=== PATIENT | female | born 1970 | race American Indian/Alaskan Native ===

== ENCOUNTER 2017-04-20 14:30 | Outpatient (CLI) | payer OTHER | END 2017-04-20 14:31 | disposition home or self-care (01) | LOC: LABHHL 14:30 | PROVIDERS: ATTEND Surgery | DX: N60.02 Solitary cyst of left breast (principal) | CPT/HCPCS: 88112 ==

== ENCOUNTER 2017-08-06 16:35 | Emergency (ER) | payer OTHER ==
[2017-08-06] MEDS ORDERED: XYLOCAINE 1% MPF 5 mL INFILTRATI ONE (16:51)
[2017-08-06] MEDS ORDERED: XYLOCAINE 1% MPF 5 mL ONE (16:52)
[2017-08-06 17:12] VITALS: BP 154/82
--- NOTE | 2017-08-06 17:14 | Discharge Summary ---
Providers - Providers Primary care physician: [employer] Hospitalization Procedures: Lap band fluid removal: 7cc total removed Hospital course: 47 y.o. F presented to the ER c/o nausea and vomiting w hx of lap band. She had an upper GI series completed today that showed dilated esophagus with minimal fluid draining passed the lap bad. Pt has had n/v for several days. Denies fever or chills or abdominal pain. Pt had most recent adjust of band in January. Orig. lap band 2007. Total fluid removed from band: 7cc. Post fluid removal pt tolerated fluids well without any nausea or vomiting. Pt understands she needs to follow up in the office for plan of care regarding the lap band management. Disposition: DC-01 TO HOME OR SELFCARE Core Measure Documentation - Palliative Care Palliative Care/ Comfort Measures: Not Applicable - Core Measures Any of the following diagnoses?: none Exam - Physical Exam Narrative exam: Abd: soft, port felt LLQ. non tender. no rebound no guarding. Scars healed. Plan Activity: no restrictions Diet: clear liquids (clears today, advance as tolerated tomorrow ) Follow up with: OPAL DONG MD [Primary Care Provider] - 7 Days NICKI COLBY MD [Staff Physician] - 7 Days
[2017-08-08] MEDS ORDERED: ZOFRAN IV PRN (22:11)
[2017-08-08] MEDS ORDERED: MORPHINE IV PRN (22:11)
[2017-08-08] MEDS ORDERED: LACTATED RINGERS 1,000 ML IV SCH (23:00)
== END 2017-08-06 17:21 | disposition home or self-care (01) ==
LOC: ED 16:35 → 3A 08-08 21:16 → UNDOADMIN 08-08 21:16 → 3A 08-08 22:03 → UNDOADMIN 08-08 22:03
DX: R10.32 Left lower quadrant pain (principal); R11.2 Nausea with vomiting, unspecified
CPT/HCPCS: 99282

== ENCOUNTER 2018-01-25 11:00 | Outpatient (CLI) | payer OTHER | END 2018-01-25 11:01 | disposition home or self-care (01) | LOC: SLR 11:00 | PROVIDERS: ATTEND Otolaryngology | DX: G47.30 Sleep apnea, unspecified (principal) | CPT/HCPCS: G0399 ==

== ENCOUNTER 2018-08-09 10:01 | Outpatient (CLI) | payer OTHER ==
--- NOTE | 2018-08-09 15:55 | Ultrasound Report ---
BILATERAL DIGITAL DIAGNOSTIC MAMMOGRAM with CAD and LEFT BREAST ULTRASOUND: 08/09/18 CLINICAL: Left breast pain and lump. COMPARISON:08/23/17 FINDINGS: The breasts are heterogeneously dense, which may obscure small masses and bilateral breast density is increased compared to the prior exam. A large left upper outer partially circumscribed parenchymal asymmetry demonstrates satisfactory effacement on the CC view and partial effacement on an MLO spot. No architectural distortion or suspicious calcifications . No mammographic finding at a left upper outer palpable marker. The right breast is negative.. Ultrasound of left breast (including all four quadrants and the retroareolar area) was performed. An oval solid superficial solid hypoechoic mass at 12 o'clock near the areola correlates with the palpable lump and measures 7 x 3 x 7 mm. A nonpalpable solid oval slightly irregular hypoechoic mass at 7 o'clock 7 cm from the nipple measures 1.4 x 0.6 x 1.2 cm. Several scattered small benign cysts. IMPRESSION: Solid probably benign left breast masses at 12 o'clock near the areola and at 7 o'clock 7 cm from the nipple. BI-RADS CATEGORY: 3 - - Probably Benign RECOMMENDATION: Six month followup left breast ultrasound to reevaluate the size of the solid left breast masses. ACR BI-RADS MAMMOGRAPHIC CODES: 0 = Needs additional imaging evaluation; 1 = Negative; 2 = Benign; 3 = Probably benign; 4 = Suspicious; 5 = Malignant; 6 = Known biopsy-proven malignancy COMMENT: 1. Dense breast tissue, i.e., adenosis, fibrocystic changes, etc., may obscure an underlying neoplasm. 2. Approximately 10% of cancers are not detected with mammography. 3. A negative mammography report should not delay biopsy if a clinically suspicious mass is present. COMMENT: Patient follow-up letters are generated by our [employer] application.
== END 2018-08-09 10:02 | disposition home or self-care (01) ==
LOC: SPVWC 10:01
PROVIDERS: ATTEND Surgery
DX: N64.4 Mastodynia (principal); I10 Essential (primary) hypertension; K21.9 Gastro-esophageal reflux disease without esophagitis; E66.9 Obesity, unspecified; M06.9 Rheumatoid arthritis, unspecified; Z90.49 Acquired absence of other specified parts of digestive tract; Z90.12 Acquired absence of left breast and nipple
CPT/HCPCS: 77066